=== PATIENT | female | born 1975 | race Caucasian/White ===

== ENCOUNTER 2017-09-10 08:26 | Outpatient (CLI) | payer OTHER | END 2017-09-10 08:42 | disposition home or self-care (01) | LOC: SONOGRAMA 08:26 | DX: N92.3 Ovulation bleeding (principal); N94.9 Unspecified condition associated with female genital organs and menstrual cycle ==

== ENCOUNTER 2017-09-25 07:26 | Outpatient (CLI) | payer OTHER | END 2017-09-25 07:40 | disposition home or self-care (01) | LOC: RX STUDY 07:26 | DX: K58.9 Irritable bowel syndrome, unspecified (principal); K59.9 Functional intestinal disorder, unspecified ==

== ENCOUNTER → 2018-10-16 | Outpatient (CLI) | payer OTHER | END | disposition home or self-care (01) | LOC: SONOGRAMA 08:36 | DX: K58.8 Other irritable bowel syndrome (principal); K30 Functional dyspepsia; K21.9 Gastro-esophageal reflux disease without esophagitis; K59.8 Other specified functional intestinal disorders; R10.2 Pelvic and perineal pain ==

== ENCOUNTER 2018-11-11 08:25 | Outpatient (CLI) | payer OTHER | END 2018-11-11 10:34 | disposition home or self-care (01) | LOC: MAMO-SONO 08:25 | DX: N64.4 Mastodynia (principal); Z12.31 Encounter for screening mammogram for malignant neoplasm of breast; Z12.39 Encounter for other screening for malignant neoplasm of breast ==

== ENCOUNTER → 2019-06-27 | Emergency (ER) | payer OTHER ==
[~2019-06-27] VITALS: Ht 165.1 cm; Wt 72.6 kg
[~2019-06-27] MED LIST: CORGARD20 M1; TIKOSYN500 MCG; VASOTEC10 MG
== END | disposition home or self-care (01) ==
LOC: ER 17:34
DX: S61.021A Laceration with foreign body of right thumb without damage to nail, initial encounter (principal); W45.8XXA Other foreign body or object entering through skin, initial encounter; Y93.89 Activity, other specified; Y92.090 Kitchen in other non-institutional residence as the place of occurrence of the external cause; Y99.8 Other external cause status

== ENCOUNTER 2019-11-17 09:11 | Outpatient (CLI) | payer OTHER | END 2019-11-17 14:05 | disposition home or self-care (01) | LOC: MAMO-SONO 09:11 | PROVIDERS: ATTEND Obstetrics & Gynecology | DX: Z12.31 Encounter for screening mammogram for malignant neoplasm of breast (principal); N60.11 Diffuse cystic mastopathy of right breast; N60.12 Diffuse cystic mastopathy of left breast ==

== ENCOUNTER 2020-01-14 13:00 | Outpatient (CLI) | payer OTHER | END 2020-01-14 13:13 | disposition home or self-care (01) | LOC: SONOGRAMA 13:00 → MAMO-SONO 13:15 | PROVIDERS: ATTEND Urology | DX: N39.0 Urinary tract infection, site not specified (principal); R35.8 Other polyuria; R35.1 Nocturia ==

== ENCOUNTER → 2020-08-16 08:00 | Outpatient (CLI) | payer OTHER | END | disposition home or self-care (01) | LOC: PPH VACUNA 08:00 | DX: Z23 Encounter for immunization (principal) ==

== ENCOUNTER → 2021-03-29 | Outpatient (CLI) | payer OTHER | END | disposition home or self-care (01) | LOC: MAMO-SONO 09:50 | PROVIDERS: ATTEND Obstetrics & Gynecology | DX: N60.11 Diffuse cystic mastopathy of right breast (principal); N60.12 Diffuse cystic mastopathy of left breast ==

== ENCOUNTER 2021-04-25 09:00 | Outpatient (CLI) | payer OTHER | END 2021-04-25 09:15 | disposition home or self-care (01) | LOC: PPH VACUNA 09:00 | PROVIDERS: ATTEND Emergency Medicine Pediatric Emergency Medicine | DX: Z23 Encounter for immunization (principal) ==

== ENCOUNTER 2021-06-22 11:57 | Outpatient (CLI) | payer OTHER | END 2021-06-22 12:03 | disposition home or self-care (01) | LOC: RAD 11:57 | PROVIDERS: ATTEND Ophthalmology | DX: H25.012 Cortical age-related cataract, left eye (principal); Z98.42 Cataract extraction status, left eye ==

== ENCOUNTER 2023-06-25 08:26 | Outpatient (CLI) | payer OTHER | END 2023-06-25 08:36 | disposition home or self-care (01) | LOC: MAMO-SONO 08:26 | PROVIDERS: ATTEND Obstetrics & Gynecology | DX: N60.11 Diffuse cystic mastopathy of right breast (principal); N60.12 Diffuse cystic mastopathy of left breast ==

== ENCOUNTER 2023-11-28 09:50 | Emergency (ER) | payer OTHER ==
[~2023-11-28] VITALS: Ht 165.1 cm; Wt 70.3 kg
[2023-11-28] MEDS ORDERED: KETOROLAC TROMETHAMINE 15 MG VIAL IM STA (10:31)
[2023-11-28] MEDS ORDERED: KETOROLAC TROMETHAMINE 30 MG VIAL ONE (10:49)
== END 2023-11-28 16:27 | disposition home or self-care (01) ==
LOC: ER 09:51
DX: S52.132A Displaced fracture of neck of left radius, initial encounter for closed fracture (principal); S52.131A Displaced fracture of neck of right radius, initial encounter for closed fracture; W18.31XA Fall on same level due to stepping on an object, initial encounter; Y93.89 Activity, other specified; Y92.89 Other specified places as the place of occurrence of the external cause

== ENCOUNTER 2023-12-07 10:55 | Outpatient (CLI) | payer OTHER | END 2023-12-07 11:04 | disposition home or self-care (01) | LOC: RAD 10:55 | PROVIDERS: ATTEND Orthopaedic Surgery | DX: S52.124A Nondisplaced fracture of head of right radius, initial encounter for closed fracture (principal); S52.125A Nondisplaced fracture of head of left radius, initial encounter for closed fracture ==